=== PATIENT | female | born 1935 | race Caucasian/White ===

== ENCOUNTER 2024-12-26 11:52 | Emergency (ER) | payer MEDICARE, SELFPAY ==
[2024-12-26] VITALS (44 sets, daily range): BP systolic 86–117; BP diastolic 46–62; PULSE 48–102; RESP 15–41; TEMP 36.9; O2SAT 93–98
[2024-12-26] MEDS: KETOROLAC 30 MG/ML VIAL 15 MG IM (12:03)
[2024-12-26] MEDS: HALOPERIDOL 5 MG/ML VIAL IM ×2 (12:03→16:09)
--- NOTE | 2024-12-26 12:38 | ED_ITS ---
HPI - Psych <Sameera Carlin PA-C - Last Filed: 12/26/24 17:09> General Chief Complaint: Psychiatric Symptoms Stated Complaint: fell, hit head Lt side Time Seen by Provider: 12/26/24 11:54 Source: family Mode of arrival: Wheelchair History of Present Illness HPI Narrative: Ms. De Guzman is an 89-year-old female with a past medical history of type 2 diabetes, depression, insomnia, cholecystectomy, Alzheimer's dementia who presents to the emergency department with her daughter for agitation after being discharged from [facility] ER following a fall with small brain bleed, facial laceration that occurred last night. Patient resides at [facility]. She has been becoming more agitated for the last few days, and last night facility staff reports that she had a fall hitting the left side of her face. She was taken to [facility] ER, and based on discharge paperwork, had a small brain bleed that was stable on repeat CT, had a left forehead laceration repaired with sutures, and had a negative cervical spine. She was discharged home back to her facility however became extremely agitated, attempted to even jump out of a car, hitting, screaming. [facility] facility and her daughter subsequently brought her to this emergency department for further management. She is refusing any type of physical exam or vital sign assessment. Patient feels very paranoid and suspicious of others. Outside record review Reveals that patient moved into [facility] 1 week ago, her small dog was unable to move with her. On 12/23/2024 patient was brought to [facility] for agitation, she received Zyprexa and Valium in the emergency department and was started on new prescriptions of Xanax and Ambien to use if needed at the facility. Patient subsequently returned to the emergency department on 12/25/2024 after being found on the ground with a laceration to the forehead, it was unwitnessed and she is not on blood thinners. Head CT revealed a small subarachnoid hemorrhoid along the right posterior parietal lobe, neurosurgery was consulted and recommended repeat CT scan at 3:00 a.m. which was performed revealing unchanged small volume subarachnoid hemorrhage. No midline shift or herniation. Patient was advised to follow up with Neurosurgery outpatient. She was then discharged however attempted to jump out of moving vehicle on the way home, assisted staff and daughter brought her to this emergency department for further management. Related Data Allergies Allergy/AdvReac Type Severity Reaction Status Date / Time No Known Drug Allergies Allergy Verified 12/26/24 11:58 Review of Systems <Sameera Carlin PA-C - Last Filed: 12/26/24 17:09> Review of Systems ROS Unobtainable: All systems reviewed & are unremarkable except as noted in HPI and below Exam <Sameera Carlin PA-C - Last Filed: 12/26/24 17:09> Narrative Exam Narrative: GENERAL: 89 year old patient appears stated age. Frail elderly patient is sitting in wheelchair with her small dog in her lap. Unwilling to participate in physical exam. HEAD: Left forhead laceration with sutures in place. NECK: Cervical ROM intact. NEURO: Patient engages minimally in meaningful conversation, occasionally yelling, no aggressive behaviors when sitting holding her dog. Requesting something to eat that is in wrapped packaging. Initial Vital Signs Initial Vital Signs: Vital Signs Temperature 98.5 F 12/26/24 11:54 <Evert Hugo MD - Last Filed: 12/27/24 00:14> Initial Vital Signs Initial Vital Signs: Vital Signs Temperature 98.5 F 12/26/24 11:54 <Haylee Armendariz MD - Last Filed: 12/29/24 05:37> Initial Vital Signs Initial Vital Signs: Vital Signs Temperature 98.5 F 12/26/24 11:54 Course <Sameera Carlin PA-C - Last Filed: 12/26/24 17:09> Orders Ordered: Discontinued Medications Haloperidol (Haloperidol 5 Mg/Ml Vial) 5 mg IM NOW ONE Stop: 12/26/24 11:55 Last Admin: 12/26/24 12:03 Dose: 5 mg Documented By: ILIR Haloperidol (Haloperidol 5 Mg/Ml Vial) 5 mg IM NOW ONE Stop: 12/26/24 15:58 Last Admin: 12/26/24 16:09 Dose: 5 mg Documented By: RADHA Sodium Chloride (Normal Saline 0.9%) 1,000 mls @ 1,000 mls/hr IV BOLUS ONE Stop: 12/26/24 16:42 Last Infusion: 12/26/24 20:18 Dose: Infused Documented By: Admin: 12/26/24 17:24 Dose: 1,000 mls/hr Documented By: DAVID Dextrose (D10w) 100 mls @ 1,200 mls/hr IV PRN PRN PRN Reason: Hypoglycemia Last Infusion: 12/26/24 18:37 Dose: Infused Documented By: Admin: 12/26/24 18:25 Dose: 1,200 mls/hr Documented By: DAVID Dextrose (D10w) 500 mls @ 1,000 mls/hr IV CONT JUDE Last Infusion: 12/26/24 23:33 Dose: Infused Documented By: Admin: 12/26/24 22:58 Dose: 1,000 mls/hr Documented By: JANELL Ketorolac Tromethamine (Ketorolac 30 Mg/Ml Vial) 15 mg IM NOW ONE Stop: 12/26/24 11:55 Last Admin: 12/26/24 12:03 Dose: 15 mg Documented By: ILIR Lorazepam (Lorazepam 2 Mg/Ml Inj) 2 mg IM NOW ONE Stop: 12/26/24 15:58 Last Admin: 12/26/24 16:15 Dose: Not Given Documented By: DAVID Vital Signs Vital signs: Vital Signs - 8 hr 12/26/24 17:30 12/26/24 17:30 12/26/24 17:40 Pulse Rate 67 77 Respiratory Rate Blood Pressure 98/55 L Pulse Oximetry 95 97 Oxygen Delivery Method 12/26/24 17:40 12/26/24 17:55 12/26/24 17:55 Pulse Rate 71 Respiratory Rate 22 Blood Pressure 101/57 L 94/48 L Pulse Oximetry 97 Oxygen Delivery Method 12/26/24 18:00 12/26/24 18:00 12/26/24 18:10 Pulse Rate 102 H 74 Respiratory Rate 22 Blood Pressure 99/52 L Pulse Oximetry 96 97 Oxygen Delivery Method 12/26/24 18:10 12/26/24 18:20 12/26/24 18:20 Pulse Rate 72 Respiratory Rate Blood Pressure 109/51 L 100/52 L Pulse Oximetry 96 Oxygen Delivery Method 12/26/24 18:30 12/26/24 18:30 12/26/24 18:40 Pulse Rate 69 67 Respiratory Rate 16 18 Blood Pressure 108/51 L Pulse Oximetry 96 95 Oxygen Delivery Method 12/26/24 18:40 12/26/24 18:50 12/26/24 18:50 Pulse Rate 73 Respiratory Rate Blood Pressure 110/56 L 103/51 L Pulse Oximetry 96 Oxygen Delivery Method 12/26/24 19:00 12/26/24 19:00 12/26/24 19:10 Pulse Rate 66 Respiratory Rate 17 Blood Pressure 103/57 L 103/51 L Pulse Oximetry 96 Oxygen Delivery Method 12/26/24 19:10 12/26/24 19:20 12/26/24 19:30 Pulse Rate 63 69 Respiratory Rate 18 18 Blood Pressure 92/51 L Pulse Oximetry 98 93 Oxygen Delivery Method 12/26/24 19:30 12/26/24 19:40 12/26/24 19:40 Pulse Rate 60 58 L Respiratory Rate 22 Blood Pressure 95/51 L Pulse Oximetry 97 Oxygen Delivery Method Room Air 12/26/24 19:46 12/26/24 19:46 12/26/24 19:50 Pulse Rate 56 L Respiratory Rate 16 Blood Pressure 98/50 L 91/46 L Pulse Oximetry 97 Oxygen Delivery Method Room Air 12/26/24 19:50 12/26/24 20:00 12/26/24 20:00 Pulse Rate 52 L 54 L Respiratory Rate 28 H 30 H Blood Pressure 86/48 L Pulse Oximetry 97 96 Oxygen Delivery Method Room Air 12/26/24 20:02 12/26/24 20:02 12/26/24 20:10 Pulse Rate 59 L 48 L Respiratory Rate 32 H 25 H Blood Pressure 96/55 L Pulse Oximetry 98 96 Oxygen Delivery Method 12/26/24 20:14 12/26/24 20:14 12/26/24 20:20 Pulse Rate 58 L 54 L Respiratory Rate 41 H 37 H Blood Pressure 94/55 L Pulse Oximetry 98 97 Oxygen Delivery Method 12/26/24 20:20 12/26/24 20:30 12/26/24 20:30 Pulse Rate 53 L Respiratory Rate 31 H Blood Pressure 101/49 L 94/54 L Pulse Oximetry 97 Oxygen Delivery Method 12/26/24 20:41 12/26/24 20:41 12/26/24 20:50 Pulse Rate 66 61 Respiratory Rate 34 H 21 Blood Pressure 111/51 L Pulse Oximetry 96 97 Oxygen Delivery Method Room Air Room Air 12/26/24 20:50 12/26/24 21:00 12/26/24 21:09 Pulse Rate 62 70 Respiratory Rate 41 H 28 H Blood Pressure 105/50 L Pulse Oximetry 96 96 Oxygen Delivery Method Room Air Room Air 12/26/24 21:10 12/26/24 21:10 12/26/24 21:11 Pulse Rate 65 Respiratory Rate 18 Blood Pressure 101/51 L 93/55 L Pulse Oximetry 96 Oxygen Delivery Method 12/26/24 21:11 12/26/24 21:20 12/26/24 21:20 Pulse Rate 69 72 Respiratory Rate 20 18 Blood Pressure 101/55 L Pulse Oximetry 95 Oxygen Delivery Method 12/26/24 21:31 12/26/24 21:40 12/26/24 21:40 Pulse Rate 67 Respiratory Rate 22 Blood Pressure 103/62 91/53 L Pulse Oximetry Oxygen Delivery Method 12/26/24 21:50 12/26/24 21:50 12/26/24 22:00 Pulse Rate 62 Respiratory Rate 30 H Blood Pressure 91/50 L 99/51 L Pulse Oximetry Oxygen Delivery Method 12/26/24 22:00 12/26/24 22:10 12/26/24 22:10 Pulse Rate 51 L 53 L Respiratory Rate 20 22 Blood Pressure 105/49 L Pulse Oximetry Oxygen Delivery Method 12/26/24 22:20 12/26/24 22:20 12/26/24 22:30 Pulse Rate 51 L Respiratory Rate 18 Blood Pressure 106/55 L 100/53 L Pulse Oximetry Oxygen Delivery Method 12/26/24 22:30 12/26/24 23:00 12/26/24 23:30 Pulse Rate 64 68 69 Respiratory Rate 20 18 18 Blood Pressure Pulse Oximetry Oxygen Delivery Method <Evert Hugo MD - Last Filed: 12/27/24 00:14> Orders Ordered: Discontinued Medications Haloperidol (Haloperidol 5 Mg/Ml Vial) 5 mg IM NOW ONE Stop: 12/26/24 11:55 Last Admin: 12/26/24 12:03 Dose: 5 mg Documented By: ILIR Haloperidol (Haloperidol 5 Mg/Ml Vial) 5 mg IM NOW ONE Stop: 12/26/24 15:58 Last Admin: 12/26/24 16:09 Dose: 5 mg Documented By: DM Sodium Chloride (Normal Saline 0.9%) 1,000 mls @ 1,000 mls/hr IV BOLUS ONE Stop: 12/26/24 16:42 Last Infusion: 12/26/24 20:18 Dose: Infused Documented By: Admin: 12/26/24 17:24 Dose: 1,000 mls/hr Documented By: DAVID Dextrose (D10w) 100 mls @ 1,200 mls/hr IV PRN PRN PRN Reason: Hypoglycemia Last Infusion: 12/26/24 18:37 Dose: Infused Documented By: Admin: 12/26/24 18:25 Dose: 1,200 mls/hr Documented By: DAVID Dextrose (D10w) 500 mls @ 1,000 mls/hr IV CONT JUDE Last Infusion: 12/26/24 23:33 Dose: Infused Documented By: Admin: 12/26/24 22:58 Dose: 1,000 mls/hr Documented By: JANELL Ketorolac Tromethamine (Ketorolac 30 Mg/Ml Vial) 15 mg IM NOW ONE Stop: 12/26/24 11:55 Last Admin: 12/26/24 12:03 Dose: 15 mg Documented By: ILIR Lorazepam (Lorazepam 2 Mg/Ml Inj) 2 mg IM NOW ONE Stop: 12/26/24 15:58 Last Admin: 12/26/24 16:15 Dose: Not Given Documented By: DAVID Vital Signs Vital signs: Vital Signs - 8 hr 12/26/24 17:30 12/26/24 17:30 12/26/24 17:40 Pulse Rate 67 77 Respiratory Rate Blood Pressure 98/55 L Pulse Oximetry 95 97 Oxygen Delivery Method 12/26/24 17:40 12/26/24 17:55 12/26/24 17:55 Pulse Rate 71 Respiratory Rate 22 Blood Pressure 101/57 L 94/48 L Pulse Oximetry 97 Oxygen Delivery Method 12/26/24 18:00 12/26/24 18:00 12/26/24 18:10 Pulse Rate 102 H 74 Respiratory Rate 22 Blood Pressure 99/52 L Pulse Oximetry 96 97 Oxygen Delivery Method 12/26/24 18:10 12/26/24 18:20 12/26/24 18:20 Pulse Rate 72 Respiratory Rate Blood Pressure 109/51 L 100/52 L Pulse Oximetry 96 Oxygen Delivery Method 12/26/24 18:30 12/26/24 18:30 12/26/24 18:40 Pulse Rate 69 67 Respiratory Rate 16 18 Blood Pressure 108/51 L Pulse Oximetry 96 95 Oxygen Delivery Method 12/26/24 18:40 12/26/24 18:50 12/26/24 18:50 Pulse Rate 73 Respiratory Rate Blood Pressure 110/56 L 103/51 L Pulse Oximetry 96 Oxygen Delivery Method 12/26/24 19:00 12/26/24 19:00 12/26/24 19:10 Pulse Rate 66 Respiratory Rate 17 Blood Pressure 103/57 L 103/51 L Pulse Oximetry 96 Oxygen Delivery Method 12/26/24 19:10 12/26/24 19:20 12/26/24 19:30 Pulse Rate 63 69 Respiratory Rate 18 18 Blood Pressure 92/51 L Pulse Oximetry 98 93 Oxygen Delivery Method 12/26/24 19:30 12/26/24 19:40 12/26/24 19:40 Pulse Rate 60 58 L Respiratory Rate 22 Blood Pressure 95/51 L Pulse Oximetry 97 Oxygen Delivery Method Room Air 12/26/24 19:46 12/26/24 19:46 12/26/24 19:50 Pulse Rate 56 L Respiratory Rate 16 Blood Pressure 98/50 L 91/46 L Pulse Oximetry 97 Oxygen Delivery Method Room Air 12/26/24 19:50 12/26/24 20:00 12/26/24 20:00 Pulse Rate 52 L 54 L Respiratory Rate 28 H 30 H Blood Pressure 86/48 L Pulse Oximetry 97 96 Oxygen Delivery Method Room Air 12/26/24 20:02 12/26/24 20:02 12/26/24 20:10 Pulse Rate 59 L 48 L Respiratory Rate 32 H 25 H Blood Pressure 96/55 L Pulse Oximetry 98 96 Oxygen Delivery Method 12/26/24 20:14 12/26/24 20:14 12/26/24 20:20 Pulse Rate 58 L 54 L Respiratory Rate 41 H 37 H Blood Pressure 94/55 L Pulse Oximetry 98 97 Oxygen Delivery Method 12/26/24 20:20 12/26/24 20:30 12/26/24 20:30 Pulse Rate 53 L Respiratory Rate 31 H Blood Pressure 101/49 L 94/54 L Pulse Oximetry 97 Oxygen Delivery Method 12/26/24 20:41 12/26/24 20:41 12/26/24 20:50 Pulse Rate 66 61 Respiratory Rate 34 H 21 Blood Pressure 111/51 L Pulse Oximetry 96 97 Oxygen Delivery Method Room Air Room Air 12/26/24 20:50 12/26/24 21:00 12/26/24 21:09 Pulse Rate 62 70 Respiratory Rate 41 H 28 H Blood Pressure 105/50 L Pulse Oximetry 96 96 Oxygen Delivery Method Room Air Room Air 12/26/24 21:10 12/26/24 21:10 12/26/24 21:11 Pulse Rate 65 Respiratory Rate 18 Blood Pressure 101/51 L 93/55 L Pulse Oximetry 96 Oxygen Delivery Method 12/26/24 21:11 12/26/24 21:20 12/26/24 21:20 Pulse Rate 69 72 Respiratory Rate 20 18 Blood Pressure 101/55 L Pulse Oximetry 95 Oxygen Delivery Method 12/26/24 21:31 12/26/24 21:40 12/26/24 21:40 Pulse Rate 67 Respiratory Rate 22 Blood Pressure 103/62 91/53 L Pulse Oximetry Oxygen Delivery Method 12/26/24 21:50 12/26/24 21:50 12/26/24 22:00 Pulse Rate 62 Respiratory Rate 30 H Blood Pressure 91/50 L 99/51 L Pulse Oximetry Oxygen Delivery Method 12/26/24 22:00 12/26/24 22:10 12/26/24 22:10 Pulse Rate 51 L 53 L Respiratory Rate 20 22 Blood Pressure 105/49 L Pulse Oximetry Oxygen Delivery Method 12/26/24 22:20 12/26/24 22:20 12/26/24 22:30 Pulse Rate 51 L Respiratory Rate 18 Blood Pressure 106/55 L 100/53 L Pulse Oximetry Oxygen Delivery Method 12/26/24 22:30 12/26/24 23:00 12/26/24 23:30 Pulse Rate 64 68 69 Respiratory Rate 20 18 18 Blood Pressure Pulse Oximetry Oxygen Delivery Method <Haylee Armendariz MD - Last Filed: 12/29/24 05:37> Orders Ordered: Discontinued Medications Haloperidol (Haloperidol 5 Mg/Ml Vial) 5 mg IM NOW ONE Stop: 12/26/24 11:55 Last Admin: 12/26/24 12:03 Dose: 5 mg Documented By: ILIR Haloperidol (Haloperidol 5 Mg/Ml Vial) 5 mg IM NOW ONE Stop: 12/26/24 15:58 Last Admin: 12/26/24 16:09 Dose: 5 mg Documented By: DMH Sodium Chloride (Normal Saline 0.9%) 1,000 mls @ 1,000 mls/hr IV BOLUS ONE Stop: 12/26/24 16:42 Last Infusion: 12/26/24 20:18 Dose: Infused Documented By: Admin: 12/26/24 17:24 Dose: 1,000 mls/hr Documented By: DAVID Dextrose (D10w) 100 mls @ 1,200 mls/hr IV PRN PRN PRN Reason: Hypoglycemia Last Infusion: 12/26/24 18:37 Dose: Infused Documented By: Admin: 12/26/24 18:25 Dose: 1,200 mls/hr Documented By: DAVID Dextrose (D10w) 500 mls @ 1,000 mls/hr IV CONT JUDE Last Infusion: 12/26/24 23:33 Dose: Infused Documented By: Admin: 12/26/24 22:58 Dose: 1,000 mls/hr Documented By: JANELL Ketorolac Tromethamine (Ketorolac 30 Mg/Ml Vial) 15 mg IM NOW ONE Stop: 12/26/24 11:55 Last Admin: 12/26/24 12:03 Dose: 15 mg Documented By: ILIR Lorazepam (Lorazepam 2 Mg/Ml Inj) 2 mg IM NOW ONE Stop: 12/26/24 15:58 Last Admin: 12/26/24 16:15 Dose: Not Given Documented By: DAVID Vital Signs Vital signs: Vital Signs - 8 hr 12/26/24 17:30 12/26/24 17:30 12/26/24 17:40 Pulse Rate 67 77 Respiratory Rate Blood Pressure 98/55 L Pulse Oximetry 95 97 Oxygen Delivery Method 12/26/24 17:40 12/26/24 17:55 12/26/24 17:55 Pulse Rate 71 Respiratory Rate 22 Blood Pressure 101/57 L 94/48 L Pulse Oximetry 97 Oxygen Delivery Method 12/26/24 18:00 12/26/24 18:00 12/26/24 18:10 Pulse Rate 102 H 74 Respiratory Rate 22 Blood Pressure 99/52 L Pulse Oximetry 96 97 Oxygen Delivery Method 12/26/24 18:10 12/26/24 18:20 12/26/24 18:20 Pulse Rate 72 Respiratory Rate Blood Pressure 109/51 L 100/52 L Pulse Oximetry 96 Oxygen Delivery Method 12/26/24 18:30 12/26/24 18:30 12/26/24 18:40 Pulse Rate 69 67 Respiratory Rate 16 18 Blood Pressure 108/51 L Pulse Oximetry 96 95 Oxygen Delivery Method 12/26/24 18:40 12/26/24 18:50 12/26/24 18:50 Pulse Rate 73 Respiratory Rate Blood Pressure 110/56 L 103/51 L Pulse Oximetry 96 Oxygen Delivery Method 12/26/24 19:00 12/26/24 19:00 12/26/24 19:10 Pulse Rate 66 Respiratory Rate 17 Blood Pressure 103/57 L 103/51 L Pulse Oximetry 96 Oxygen Delivery Method 12/26/24 19:10 12/26/24 19:20 12/26/24 19:30 Pulse Rate 63 69 Respiratory Rate 18 18 Blood Pressure 92/51 L Pulse Oximetry 98 93 Oxygen Delivery Method 12/26/24 19:30 12/26/24 19:40 12/26/24 19:40 Pulse Rate 60 58 L Respiratory Rate 22 Blood Pressure 95/51 L Pulse Oximetry 97 Oxygen Delivery Method Room Air 12/26/24 19:46 12/26/24 19:46 12/26/24 19:50 Pulse Rate 56 L Respiratory Rate 16 Blood Pressure 98/50 L 91/46 L Pulse Oximetry 97 Oxygen Delivery Method Room Air 12/26/24 19:50 12/26/24 20:00 12/26/24 20:00 Pulse Rate 52 L 54 L Respiratory Rate 28 H 30 H Blood Pressure 86/48 L Pulse Oximetry 97 96 Oxygen Delivery Method Room Air 12/26/24 20:02 12/26/24 20:02 12/26/24 20:10 Pulse Rate 59 L 48 L Respiratory Rate 32 H 25 H Blood Pressure 96/55 L Pulse Oximetry 98 96 Oxygen Delivery Method 12/26/24 20:14 12/26/24 20:14 12/26/24 20:20 Pulse Rate 58 L 54 L Respiratory Rate 41 H 37 H Blood Pressure 94/55 L Pulse Oximetry 98 97 Oxygen Delivery Method 12/26/24 20:20 12/26/24 20:30 12/26/24 20:30 Pulse Rate 53 L Respiratory Rate 31 H Blood Pressure 101/49 L 94/54 L Pulse Oximetry 97 Oxygen Delivery Method 12/26/24 20:41 12/26/24 20:41 12/26/24 20:50 Pulse Rate 66 61 Respiratory Rate 34 H 21 Blood Pressure 111/51 L Pulse Oximetry 96 97 Oxygen Delivery Method Room Air Room Air 12/26/24 20:50 12/26/24 21:00 12/26/24 21:09 Pulse Rate 62 70 Respiratory Rate 41 H 28 H Blood Pressure 105/50 L Pulse Oximetry 96 96 Oxygen Delivery Method Room Air Room Air 12/26/24 21:10 12/26/24 21:10 12/26/24 21:11 Pulse Rate 65 Respiratory Rate 18 Blood Pressure 101/51 L 93/55 L Pulse Oximetry 96 Oxygen Delivery Method 12/26/24 21:11 12/26/24 21:20 12/26/24 21:20 Pulse Rate 69 72 Respiratory Rate 20 18 Blood Pressure 101/55 L Pulse Oximetry 95 Oxygen Delivery Method 12/26/24 21:31 12/26/24 21:40 12/26/24 21:40 Pulse Rate 67 Respiratory Rate 22 Blood Pressure 103/62 91/53 L Pulse Oximetry Oxygen Delivery Method 12/26/24 21:50 12/26/24 21:50 12/26/24 22:00 Pulse Rate 62 Respiratory Rate 30 H Blood Pressure 91/50 L 99/51 L Pulse Oximetry Oxygen Delivery Method 12/26/24 22:00 12/26/24 22:10 12/26/24 22:10 Pulse Rate 51 L 53 L Respiratory Rate 20 22 Blood Pressure 105/49 L Pulse Oximetry Oxygen Delivery Method 12/26/24 22:20 12/26/24 22:20 12/26/24 22:30 Pulse Rate 51 L Respiratory Rate 18 Blood Pressure 106/55 L 100/53 L Pulse Oximetry Oxygen Delivery Method 12/26/24 22:30 12/26/24 23:00 12/26/24 23:30 Pulse Rate 64 68 69 Respiratory Rate 20 18 18 Blood Pressure Pulse Oximetry Oxygen Delivery Method MDM - Psych <Sameera Carlin PA-C - Last Filed: 12/26/24 17:09> Medical Records Medical records narrative: Printed records reviewed Lab Data 12/26/24 17:16 12/26/24 17:16 Labs: Lab Results 12/26/24 Range/Units 17:16 WBC 8.1 (4.5-11.0) X10^3/uL RBC 4.76 (4.0-5.2) X10^6/uL Hgb 14.2 (12.0-16.0) g/dL Hct 41.7 (36-46) % MCV 87.7 (80-100) fL MCH 29.7 (26-34) PG MCHC 33.9 (30-36) % RDW 14.0 (11.6-14.8) % Plt Count 231 (150-400) X10^3/uL Neut % (Auto) 73.4 (50-75) % Lymph % (Auto) 13.2 L (25-40) % Sargent % (Auto) 12.8 (3-14) % Eos % (Auto) 0.2 L (2-4) % Baso % (Auto) 0.4 (0-2) % Neut # (Auto) 5900 (7170-2785) /uL Lymph # (Auto) 1100 (5428-6393) /uL Sargent # (Auto) 1000 H (0-900) /uL Eos # (Auto) 0 (0-450) /uL Baso # (Auto) 0 (0-100) /uL Sodium 140 (137-145) mmol/L Potassium 3.8 (3.4-5.1) mmol/L Chloride 99 (98-107) mmol/L Carbon Dioxide 28 (22-32) mmol/L BUN 43 H (7-17) mg/dL Creatinine 1.42 H (0.52-1.04) mg/dL Estimated GFR 35 L (>60) mL/min BUN/Creatinine Ratio 30.3 H (6-22) Glucose 54 L (70-99) mg/dL Calcium 9.6 (8.4-10.2) mg/dL Total Bilirubin 1.4 H (0.2-1.3) mg/dL AST 40 H (14-36) IU/L ALT 24 (<35) IU/L Alkaline Phosphatase 66 (38-126) U/L Total Protein 7.6 (6.3-8.2) g/dL Albumin 4.1 (3.5-5.0) g/dL Globulin 3.5 (1.7-4.1) g/dL Albumin/Globulin Ratio 1.2 (1.0-2.8) Point of Care Testing Glucose POC 270 MDM Narrative Medical decision making narrative: 89-year-old female with a past medical history of type 2 diabetes, depression, insomnia, cholecystectomy, Alzheimer's dementia who presents to the emergency department with her daughter for agitation after being discharged from [facility] ER following a fall with small brain bleed, facial laceration that occurred last night. Differential diagnosis includes but isn't limited to head trauma, pain, Acute psychosis/delirium,dementia, etc. On exam patient is in no acute distress at rest when sitting in the wheelchair with her small dog, however she does occasionally become agitated when physical exam or vital signs are attempted. Patient was treated with IM Haldol and Toradol in ER triage to help with her symptoms, ordered by attending physician, then moved to the fast track area of the emergency department for a calm and quiet environment. [facility]. 2pm: Patient now resting, sleeping. Consulted with ER attending physician. Will reassess her when she wakes up, if additional IM medication or workup is needed she will be transferred to the main ER. 3:30pm: Records were obtained from [facility], adding additional history. It appears patient was moved from home to a assisted 1 week ago. She was seen in the emergency department on 12/23 for agitation. She was seen again in the emergency department yesterday After being [facility] the [facility] homeand found to have a subarachnoid hemorrhage which remained stable on a 3 hour recheck so patient was discharged and advised to follow up with Neurosurgery outpatient. Vital signs were finally able to be obtained on the patient revealing a low blood pressure, she appears to be sleepy but does become slightly agitated with arousal. She will benefit from further monitoring and management in the main emergency department. Patient and her daughter are agreeable to transfer to main ED for higher level of care. <Evert Hugo MD - Last Filed: 12/27/24 00:14> Lab Data Lab results narrative: I reviewed patient's labs that show no significant leukocytosis, anemia thrombocytopenia or significant abnormalities requiring emergency department intervention. Aside from low glucose which was treated with D10 Labs: Lab Results 12/26/24 Range/Units 17:16 WBC 8.1 (4.5-11.0) X10^3/uL RBC 4.76 (4.0-5.2) X10^6/uL Hgb 14.2 (12.0-16.0) g/dL Hct 41.7 (36-46) % MCV 87.7 (80-100) fL MCH 29.7 (26-34) PG MCHC 33.9 (30-36) % RDW 14.0 (11.6-14.8) % Plt Count 231 (150-400) X10^3/uL Neut % (Auto) 73.4 (50-75) % Lymph % (Auto) 13.2 L (25-40) % Sargent % (Auto) 12.8 (3-14) % Eos % (Auto) 0.2 L (2-4) % Baso % (Auto) 0.4 (0-2) % Neut # (Auto) 5900 (9751-2113) /uL Lymph # (Auto) 1100 (2142-6852) /uL Sargent # (Auto) 1000 H (0-900) /uL Eos # (Auto) 0 (0-450) /uL Baso # (Auto) 0 (0-100) /uL Sodium 140 (137-145) mmol/L Potassium 3.8 (3.4-5.1) mmol/L Chloride 99 (98-107) mmol/L Carbon Dioxide 28 (22-32) mmol/L BUN 43 H (7-17) mg/dL Creatinine 1.42 H (0.52-1.04) mg/dL Estimated GFR 35 L (>60) mL/min BUN/Creatinine Ratio 30.3 H (6-22) Glucose 54 L (70-99) mg/dL Calcium 9.6 (8.4-10.2) mg/dL Total Bilirubin 1.4 H (0.2-1.3) mg/dL AST 40 H (14-36) IU/L ALT 24 (<35) IU/L Alkaline Phosphatase 66 (38-126) U/L Total Protein 7.6 (6.3-8.2) g/dL Albumin 4.1 (3.5-5.0) g/dL Globulin 3.5 (1.7-4.1) g/dL Albumin/Globulin Ratio 1.2 (1.0-2.8) Point of Care Testing Glucose POC 270 MDM Narrative Medical decision making narrative: 89-year-old female with a past medical history of type 2 diabetes, depression, insomnia, cholecystectomy, Alzheimer's dementia who presents to the emergency department with her daughter for agitation after being discharged from [facility] ER following a fall with small brain bleed, facial laceration that occurred last night. Differential diagnosis includes but isn't limited to head trauma, pain, Acute psychosis/delirium,dementia, etc. On exam patient is in no acute distress at rest when sitting in the wheelchair with her small dog, however she does occasionally become agitated when physical exam or vital signs are attempted. Patient was treated with IM Haldol and Toradol in ER triage to help with her symptoms, ordered by attending physician, then moved to the fast track area of the emergency department for a calm and quiet environment. [facility] records requested. 2pm: Patient now resting, sleeping. Consulted with ER attending physician. Will reassess her when she wakes up, if additional IM medication or workup is needed she will be transferred to the main ER. 3:30pm: Records were obtained from [email or web address], adding additional history. It appears patient was moved from home to a assisted 1 week ago. She was seen in the emergency department on 12/23 for agitation. She was seen again in the emergency department yesterday After being found down at the nursing homeand found to have a subarachnoid hemorrhage which remained stable on a 3 hour recheck so patient was discharged and advised to follow up with Neurosurgery outpatient. Vital signs were finally able to be obtained on the patient revealing a low blood pressure, she appears to be sleepy but does become slightly agitated with arousal. She will benefit from further monitoring and management in the main emergency department. Patient and her daughter are agreeable to transfer to main ED for higher level of care. Begin documentation Dr. Hugo -repeat CT scan was done that shows continued improvement in previous subarachnoid hemorrhage, her labs were reviewed that show no acute abnormalities suspect that her ongoing behavioral issues are likely in the context of continuing resolution of her subarachnoid hemorrhage. Patient nursing facilities amenable to taking her back at this time daughter is informed and is amenable as well. Patient to be discharged to continue follow up with primary care doctors and neurosurgeons outpatient. Fortunately today she appears to be improving from a imaging and laboratory standpoint. -patient's blood glucose mildly low suspect that it is secondary to decreased p.o. intake in the context of her agitation fortunately he had improved after patient had oral intake and a small dose of D10. Patient is alert well- appearing acting appropriately and has tolerated both juice and food. <Haylee Armendariz MD - Last Filed: 12/29/24 05:37> Lab Data Labs: Lab Results 12/26/24 Range/Units 17:16 WBC 8.1 (4.5-11.0) X10^3/uL RBC 4.76 (4.0-5.2) X10^6/uL Hgb 14.2 (12.0-16.0) g/dL Hct 41.7 (36-46) % MCV 87.7 (80-100) fL MCH 29.7 (26-34) PG MCHC 33.9 (30-36) % RDW 14.0 (11.6-14.8) % Plt Count 231 (150-400) X10^3/uL Neut % (Auto) 73.4 (50-75) % Lymph % (Auto) 13.2 L (25-40) % Sargent % (Auto) 12.8 (3-14) % Eos % (Auto) 0.2 L (2-4) % Baso % (Auto) 0.4 (0-2) % Neut # (Auto) 5900 (3428-8886) /uL Lymph # (Auto) 1100 (8982-8006) /uL Sargent # (Auto) 1000 H (0-900) /uL Eos # (Auto) 0 (0-450) /uL Baso # (Auto) 0 (0-100) /uL Sodium 140 (137-145) mmol/L Potassium 3.8 (3.4-5.1) mmol/L Chloride 99 (98-107) mmol/L Carbon Dioxide 28 (22-32) mmol/L BUN 43 H (7-17) mg/dL Creatinine 1.42 H (0.52-1.04) mg/dL Estimated GFR 35 L (>60) mL/min BUN/Creatinine Ratio 30.3 H (6-22) Glucose 54 L (70-99) mg/dL Calcium 9.6 (8.4-10.2) mg/dL Total Bilirubin 1.4 H (0.2-1.3) mg/dL AST 40 H (14-36) IU/L ALT 24 (<35) IU/L Alkaline Phosphatase 66 (38-126) U/L Total Protein 7.6 (6.3-8.2) g/dL Albumin 4.1 (3.5-5.0) g/dL Globulin 3.5 (1.7-4.1) g/dL Albumin/Globulin Ratio 1.2 (1.0-2.8) Point of Care Testing Glucose POC 270 Discharge Plan Departure Patient Disposition: Home Clinical Impression: Chronic confusion Activity Restrictions/Additional Instructions: You were seen in the emergency department fortunately your CT showed continued resolution of your previous intracranial hemorrhage, your lab work did not show acute abnormalities. Please return to the emergency department if you have worsening symptoms and wished to be re-evaluated however at this time there was no admittable diagnosis and imaging appeared to be continuing to improve Stand Alone Forms: Patient Portal/API/Survey ED Sign-out <Haylee Armendariz MD - Last Filed: 12/29/24 05:37> Cosign ED Attending Cosignature Attestation: I was immediately available in the department for consultation throughout this patient's visit. Haylee Armendariz MD
--- NOTE | 2024-12-26 13:36 | PC.NURSE ---
This RN has been with patient since placement in room. Daughter at patient bedside. Patient was agitated upon arrival screaming intermittently. This RN along with patient attempted to soothe patient with therapeutic communication. Patient asked for sealed food. Provider agreed patient was able to eat. This RN provided patient with snack pack and cheese. Patient ate a few bites of the pudding. Patient is now resting with now with eyes closed with noted chest rise and fall.
--- NOTE | 2024-12-26 14:14 | PC.NURSE ---
This RN made several attempts to get patient vitals but patient swings at this RN when attempting.
--- NOTE | 2024-12-26 15:44 | DI.CT.S_ITS ---
PROCEDURE: CT HEAD/BRAIN WO CON INDICATIONS: altered mental status, [facility] ([facility] ER) 2 days ago TECHNIQUE: Noncontrast 4.5 mm thick angled axial sections acquired from the foramen magnum to the vertex, with coronal and sagittal reformats. For radiation dose reduction, the following was used: automated exposure control, adjustment of mA and/or kV according to patient size. COMPARISON: CT head 12/17/2024 FINDINGS: Image quality: Diagnostic. CSF spaces: Basal cisterns are patent. No extra-axial fluid collections. The ventricles are symmetric in size and shape. Brain: Slight hyperdensity in the posterior right parietal lobe less prominent when compared to prior exam.. There is cerebral volume loss, with resultant ventricular and sulcal prominence. There are periventricular and deep white matter chronic small vessel ischemic changes. There is intracranial internal carotid artery atherosclerosis. Skull and face: Calvarium and visualized facial bones appear intact, without suspicious lesions. Sinuses: Visualized sinuses and mastoids are clear. IMPRESSION: Slight right parietal hyperdensity suggestive of hemorrhage. It is less prominent when compared to prior exam. Dictated by: Elke Le M.D. on 12/26/2024 at 18:15 Approved by: Elke Le M.D. on 12/26/2024 at 18:17
--- NOTE | 2024-12-26 15:52 | PC.NURSE ---
Patient transferred to main emergency department from fast track and no longer in this RN care.
[2024-12-26 17:23] LABS: Add Manual Diff / Slide Review NO; Basophils Absolute Auto 0 /uL (0-100); Basophils Percent Auto 0.4 % (0-2); Eosinophils Absolute Auto 0 /uL (0-450); Eosinophils Percent Auto 0.2 % (2-4); Hematocrit 41.7 % (36-46); Hemoglobin 14.2 g/dL (12.0-16.0); Lymphocytes Absolute Auto 1100 /uL (1100-4500); Lymphocytes Percent Auto 13.2 % (25-40); Mean Corpuscular HGB Conc 33.9 % (30-36); Mean Corpuscular Hemoglobin 29.7 PG (26-34); Mean Corpuscular Volume 87.7 fL (80-100); Monocytes Absolute Auto 1000 /uL (0-900); Monocytes Percent Auto 12.8 % (3-14); Neutrophils Absolute Auto 5900 /uL (1500-7000); Neutrophils Percent Auto 73.4 % (50-75); Platelet Count 231 X10^3/uL (150-400); Red Blood Cell Count 4.76 X10^6/uL (4.0-5.2); White Blood Cell Count 8.1 X10^3/uL (4.5-11.0)
[2024-12-26] MEDS: SODIUM CHLORIDE 0.9% 1,000 ML 1000 ML IV (17:24)
[2024-12-26 17:40] LABS: Alanine Aminotransferase 24 IU/L (<35); Albumin 4.1 g/dL (3.5-5.0); Albumin Globulin Ratio 1.2 (1.0-2.8); Alkaline Phosphatase 66 U/L (38-126); Aspartate Aminotransferase 40 IU/L (14-36); BUN Creatinine Ratio 30.3 (6-22); Bilirubin Total 1.4 mg/dL (0.2-1.3); Blood Urea Nitrogen 43 mg/dL (7-17); Calcium 9.6 mg/dL (8.4-10.2); Carbon Dioxide 28 mmol/L (22-32); Chloride 99 mmol/L (98-107); Estimated Glomerular Filt Rate 35 mL/min (>60); Globulin 3.5 g/dL (1.7-4.1); Glucose 54 mg/dL (70-99); HEMOLYSIS < 15 (0-50); Potassium 3.8 mmol/L (3.4-5.1); Sodium 140 mmol/L (137-145); Total Protein 7.6 g/dL (6.3-8.2)
[2024-12-26] MEDS: DEXTROSE 10 % IN WATER 100 ML 1200 ML IV (18:25)
--- NOTE | 2024-12-26 19:13 | PC.NURSE ---
Reassess; no change
--- NOTE | 2024-12-26 21:29 | PC.NURSE ---
Rcv'd call from Yusuf Erazo, director of [facility] where pt resides. Yusuf inquires about new or changes in meds. Informed there would be no changes or new meds prescribed. Yusuf states there needs to be routine meds for agitation prescribed. Informed that would be a PMD concern and not something to be carried out in the ED setting d/t routine meds needing to be followed by PMD. Yusuf continues to insist that routine meds need to be prescribed. She states they have called and faxed PMD many times without response. This conversation circles the same multiple times. Stated to Yusuf that ED is for current situation and de-escalation and that the current situation that caused the pt to be sent here is now over. Pt has been cleared medically and no changes in care will be prescribed at this time. Dr. Hugo is in agreement. Ritu Sue is also witness to conversation and states she was not aware the facility had been unsuccessful at reaching PMD and states she will follow up.
[2024-12-26] MEDS: DEXTROSE 10 % IN WATER 500 ML 1000 ML IV (22:58)
== END 2024-12-26 23:48 | disposition home or self-care (01) ==
PROVIDERS: Emergency Medicine; Emergency Provider Emergency Medicine
DX: R41.0 Disorientation, unspecified (principal); S09.90XD Unspecified injury of head, subsequent encounter
CPT/HCPCS: 36415; 70450; 80053; 82962; 85025; 96360; 96361; 96372; 99284; J1630; J1885